=== PATIENT | female | born 1995 | race Caucasian/White ===

== ENCOUNTER 2022-03-11 18:12 | Emergency (ER) | payer MEDICAID ==
[~2022-03-11] VITALS: Ht 170.2 cm; Wt 72.6 kg
[2022-03-11 18:14] VITALS: BP 140/97
[2022-03-11] MEDS ORDERED: ONDANSETRON 4 MG ODT PO ONE (19:05)
[2022-03-11] MEDS ORDERED: ONDA-188 SL (19:13)
[2022-03-11 19:49] VITALS: BP 140/97
--- NOTE | 2022-03-11 19:49 | NUR ---
Patient discharged with v/s stable. Written and verbal after care instructions given and explained. Patient alert, oriented and verbalized understanding of instructions. Ambulatory with to car. All questions addressed prior to discharge. ID band removed. Patient advised to follow up with PMD. Rx of ZOFRAN given. Patient educated on indication of medication including possible reaction and side effects. Opportunity to ask questions provided and answered.
== END 2022-03-11 19:49 | disposition home or self-care (01) ==
LOC: MED 18:12
DX: R11.2 Nausea with vomiting, unspecified (principal); Z79.899 Other long term (current) drug therapy
CPT/HCPCS: 81025; 99283